=== PATIENT | male | born 1950 | race Caucasian/White ===

== ENCOUNTER → 2020-06-11 | Outpatient (CLI) | payer MEDICARE ==
[~2020-06-11] MED LIST: ASPI-963 PO; BACL-19 PO; BENA40TA3 PO; CLOP75TA PO; CLOP75TA52 PO; DICL100G19 TD; DOXY100C PO; FISH1CAP PO; GABA600T7 PO; HYDR-3237 PO; HYDR25TA6 PO; LOVA10TA PO; METO50TA82 PO; MULT-6 PO; MULT-717 PO; NIAC1TBM PO; OMEG500C PO; OMEP-110 PO; TERA1CAP3 PO; VERA240T10 PO; Will bring list DOP; ZOLP10TA5 PO; ZOLP12.56 PO
== END | disposition home or self-care (01) ==
LOC: CVU 12:44
PROVIDERS: ATTEND Internal Medicine Cardiovascular Disease
DX: I35.8 Other nonrheumatic aortic valve disorders (principal); I65.23 Occlusion and stenosis of bilateral carotid arteries; I11.9 Hypertensive heart disease without heart failure
CPT/HCPCS: 93306; 93880